=== PATIENT | male | born 1975 | race Caucasian/White ===

== ENCOUNTER 2018-12-12 11:40 | Emergency (ER) | payer OTHER ==
[~2018-12-12] VITALS: Ht 180.3 cm; Wt 143.3 kg
[2018-12-12 12:01] VITALS: BP 160/71; Ht 180.3 cm; Wt 143.3 kg
[2018-12-13 04:54] LABS: microscopic required? YES; urine erythrocyte NEGATIVE (NEGATIVE)
== END 2018-12-12 13:52 | disposition home or self-care (01) ==
LOC: ED 11:40
PROVIDERS: Specialist
DX: N39.0 Urinary tract infection, site not specified (principal)
CPT/HCPCS: 87491; 87591